=== PATIENT | female | born 1945 | race Caucasian/White ===

== ENCOUNTER 2017-03-15 15:44 | Inpatient (IN) | payer MEDICARE, OTHER ==
[~2017-03-15] VITALS: Ht 152.4 cm; Wt 68.2 kg
[~2017-03-15 15:44] MED LIST: AMLODIPINE PO; ASPI81TA3 PO; CITRACAL PO; MELO-216 PO; MULT-552 PO; [UNRECOGNIZED DRUG - OTHER] PO
[2017-03-15 20:00] VITALS: BP 136/65; PULSE 82; RESP 18
[2017-03-15 20:02] VITALS: Ht 152.4 cm; Wt 68.2 kg
[2017-03-15] MEDS ORDERED: ONDANSETRON 4 MG INJ IV PRN (21:00)
[2017-03-15] MEDS ORDERED: hydrALAzine 20 MG INJ IV PRN (21:00)
[2017-03-15] MEDS ORDERED: INSULIN ASPART [NOVOLOG] 3 ML PEN SC SCH (21:00)
[2017-03-15] MEDS ORDERED: morphine 2 MG INJ IV PRN (21:00)
[2017-03-15] MEDS ORDERED: GLUCOSE GEL 15 GRAM TUBE BUCCAL PRN (21:30)
[2017-03-15] MEDS ORDERED: DEXTROSE 50% 50 ML SYRINGE IV PRN ×2 (21:30)
[2017-03-15] MEDS ORDERED: GLUCOSE GEL 15 GRAM TUBE PO PRN ×2 (21:30)
[2017-03-15] MEDS ORDERED: GLUCAGON 1 MG INJ IM PRN (21:30)
[2017-03-15] MEDS: HEPARIN 5,000 UNIT/0.5 ML VIAL SC SCH (21:52)
[2017-03-15] MEDS ORDERED: SIMV40TA3 PO (22:50)
[2017-03-16 01:56] VITALS: BP 148/70; RESP 20
[2017-03-16] MEDS ORDERED: ACCU-CHEK XX SCH ×2 (02:00)
[2017-03-16 05:28] LABS: BASOPHILS % 0.5 % (0.0-2.0); EOSINOPHILS # 0.1 10^3/ul (0.0-0.5); EOSINOPHILS % 3.5 % (0.0-7.0); HEMATOCRIT 34.2 % (37.0-47.0); HEMOGLOBIN 11.4 g/dl (12.0-16.0); LYMPHOCYTES # 1.5 10^3/ul (0.8-2.9); LYMPHOCYTES % 41.7 % (15.0-51.0); MEAN CORPUSCULAR HEMOGLOBIN 30.8 pg (29.0-33.0); MEAN CORPUSCULAR HGB CONC 33.3 g/dl (32.0-37.0); MEAN CORPUSCULAR VOLUME 92.4 fl (82.0-101.0); MEAN PLATELET VOLUME 9.1 fl (7.4-10.4); MONOCYTE # 0.4 10^3/ul (0.3-0.9); MONOCYTES % 11.7 % (0.0-11.0); NEUTROPHIL # 1.6 10^3/ul (1.6-7.5); NEUTROPHILS % 42.3 % (39.0-77.0); PLATELET COUNT 209 10^3/UL (140-415); RED CELL DISTRIBUTION WIDTH 13.2 % (11.5-14.5); WHITE BLOOD COUNT 3.7 10^3/ul (4.8-10.8)
[2017-03-16 06:47] LABS: ALBUMIN 3.9 g/dl (3.3-4.9); ALBUMIN/GLOBULIN RATIO 1.34; BILIRUBIN,INDIRECT 0.2 mg/dl (0-1.1); BILIRUBIN,TOTAL 0.2 mg/dl (0.2-1.3); CALCIUM 8.8 mg/dl (8.4-10.2); CREATININE 0.83 mg/dl (0.44-1.00); PHOSPHORUS 4.1 mg/dl (2.5-4.9); POTASSIUM 3.9 mmol/L (3.5-5.1); TOTAL PROTEIN 6.8 g/dl (6.1-8.1)
[2017-03-16 07:59] VITALS: BP 137/68; RESP 16
[2017-03-16] MEDS ORDERED: INSULIN GLARGINE [LANtus] 3 ML PEN SC SCH (08:00)
[2017-03-16] MEDS: HEPARIN 5,000 UNIT/0.5 ML VIAL SC SCH ×2 (09:21→20:22)
--- NOTE | 2017-03-16 10:01 | PN ---
Date/Time of Note Date/Time of Note DATE: 03/16/17 TIME: 10:01 Assessment/Plan VTE Prophylaxis VTE Prophylaxis Intervention: ambulation, SCD's Lines/Catheters IV Catheter Type (from Nrs): Saline Lock Assessment/Plan Chief Complaint/Hosp Course 71-year-old female who was transferred from OSH for evaluation of progressive right leg swelling with associated pain 3 day duration. 1. 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 03/15/2017. Bilateral lower extremity venous duplex from [facility]. No evidence of deep vein thrombosis. 03/15/2017. Lumbosacral spine x-ray from [facility]. No fractures. Mild to moderate left convex scoliosis of the lumbar spine, degenerative disc and spondylosis throughout the lumbar spine, including the lower thoracic spine. Grade 1 anterior listhesis of L5 on S1. -Obtain lumbar spine MRI. -For pain management, add celecoxib and baclofen. -PT eval and treatment. 2. Essential hypertension. -Resume amlodipine. 3. Mild hypercalcemia with osteoporosis -We will repeat levels, obtain vitamin D and PTH. 4. Dyslipidemia. -Resume statin. 5. History of lumbar stenosis. 6. Debility secondary to #1. -Follow-up with physical therapy recommendations. Plan: Continue pain control. Follow-up with MRI findings. Patient was seen in collaboration with . Problems: Subjective 24 Hr Interval Summary Free Text/Dictation Patient lying in bed. Continues to report lower back pain with radiation to left lower leg. Right leg without any pain or swelling. Exam/Review of Systems Vital Signs Vitals Vital Signs Date Time Temp Pulse Resp B/P Pulse Ox O2 Delivery O2 Flow Rate FiO2 03/16/17 07:59 98.5 76 16 137/68 98 03/15/17 20:00 Room Air Intake and Output 03/15/17 03/15/17 03/16/17 15:00 23:00 07:00 Intake Total 320 ml Balance 320 ml Exam General: Well developed,adequately built, not in any acute distress . HEENT: Normocephalic, Atraumatic, No laceration or hematoma; Eyes: PEERL, Conjunctiva clear, Anicteric sclera Neck: Supple without any lymphadenopathy, nontender, no JVD, no carotid bruits, trachea midline, no thyromegaly Cardiac: S1, S2 auscultated, regular rhythm and rate, no mumurs or gallop Pulmonary: Normal respiratory effort. Chest clear to auscultation bilaterally, no adventitious breath sounds GI: Abdomen normal to inspection. Soft, non tender, non- distended, no masses, no rebound tenderness or guarding. Bowel sounds active on all four quadrants Genitourinary: Deferred Extremities: No cyanosis, clubbing, or edema. Pulses [2+] bilaterally. Full ROM on all four extremities. No focal weakness appreciated. Neurologic: Alert to person, place, time, and situation. Affect appropriate, intact sensation. Skin: Clean,dry, and intact. No ecchymosis, no rashes, or lesions Results Result Diagram: 03/16/17 0501 03/16/17 0501 Results 24 hrs Laboratory Tests Test 03/15/17 21:50 03/16/17 05:01 Bedside Glucose 95 White Blood Count 3.7 L Red Blood Count 3.70 L Hemoglobin 11.4 L Hematocrit 34.2 L Mean Corpuscular Volume 92.4 Mean Corpuscular Hemoglobin 30.8 Mean Corpuscular Hemoglobin Concent 33.3 Red Cell Distribution Width 13.2 Platelet Count 209 Mean Platelet Volume 9.1 Neutrophils % 42.3 Lymphocytes % 41.7 Monocytes % 11.7 H Eosinophils % 3.5 Basophils % 0.5 Nucleated Red Blood Cells % 0.0 Neutrophils # 1.6 Lymphocytes # 1.5 Monocytes # 0.4 Eosinophils # 0.1 Basophils # 0.0 Nucleated Red Blood Cells # 0.0 Sodium Level 142 Potassium Level 3.9 Chloride Level 109 Carbon Dioxide Level 26 Anion Gap 11 Blood Urea Nitrogen 15 Creatinine 0.83 Glucose Level 90 Calcium Level 8.8 Phosphorus Level 4.1 Magnesium Level 2.0 Total Bilirubin 0.2 Direct Bilirubin 0.00 Indirect Bilirubin 0.2 Aspartate Amino Transf (AST/SGOT) 23 Alanine Aminotransferase (ALT/SGPT) 39 Alkaline Phosphatase 41 L Total Protein 6.8 Albumin 3.9 Globulin 2.90 Albumin/Globulin Ratio 1.34 Lipase 297 Medications Medications Current Medications Heparin Sodium (Porcine) (Heparin (5000 Units/0.5 ml)) 5,000 unit Q12 SC Last administered on 03/16/17t 09:21; Admin Dose 5,000 UNIT; Start 03/15/17 at 21:00 Hydralazine HCl (Apresoline) 10 mg Q4H PRN IV ELEVATED BLOOD PRESSURE; Start at 21:00 Morphine Sulfate (morphine) 2 mg Q4H PRN IV PAIN; Start 03/15/17 at 21:00 Ondansetron HCl (Zofran Inj) 4 mg Q4H PRN IV NAUSEA AND/OR VOMITING; Start at 21:00 Miscellaneous Information 1 ea NOTE XX ; Start 03/15/17 at 21:30 JOSELITO BAZAN NP Mar 16, 2017 10:01
--- NOTE | 2017-03-16 10:27 | HP ---
Date/Time of Note Date/Time of Note DATE: 03/16/17 TIME: 10:18 Assessment/Plan VTE Prophylaxis VTE Prophylaxis Intervention: SCD's Lines/Catheters IV Catheter Type (from Nrsg): Saline Lock Assessment/Plan Assessment/Plan 1. Lower back pain with sciatica -X-ray of the lumbar spine from outside hospital as mentioned in the HPI -Will have a physical therapy evaluation -Pain management - Straight leg raising tests on the left and right lower extremity did not elicit appropriate pain, and as such I will see a negative test -We will consider further imaging with CT scan or MRI as needed 2. Hypertension -Adjust antihypertensives as needed 3. Dyslipidemia -Continue statin HPI/ROS Admit Date/Time Admit Date/Time Mar 15, 2017 at 19:31 Hx of Present Illness This is a 71-year-old female with a history of hypertension who initially presented to the outside hospital complaining of LEFT lower extremity pain, tingling/numbness as well as right lower extremity swelling. Patient is accompanied by her daughter who is at the bedside who also provided history. Patient started having difficulty walking about 3 days ago and then she started experiencing pain in her left buttock/thigh area with radiation to rest of lower extremity. She then started noticing tingling/numbness on the same left lower extremity followed by a right lower extremity swelling. Patient was transferred to [facility] for insurance reason. At the outside hospital lumbosacral spine x-ray showed mild to moderate left convex scoliosis of the lumbar spine, degenerative disc and spondylosis throughout the lumbar spine, including the lower thoracic spine, and grade 1 anterolisthesis of L5 on S1. Bilateral lower extremity Doppler ultrasound negative for DVT. Patient denied any recent trauma. PMH/Family/Social Social History Smoking Status: Never smoker Exam/Review of Systems Vital Signs Vitals Vital Signs Date Time Temp Pulse Resp B/P Pulse Ox O2 Delivery O2 Flow Rate FiO2 03/16/17 07:59 98.5 76 16 137/68 98 03/15/17 20:00 Room Air Intake and Output 03/15/17 03/15/17 03/16/17 15:00 23:00 07:00 Intake Total 320 ml Balance 320 ml Exam Constitutional: alert, oriented, well developed Psych: nl mood/affect, no complaints Eyes: EOMI, PERRL Respiratory: clear to auscultation, normal air movement Cardiovascular: nl pulses, regular rate and rhythm Gastrointestinal: non-tender, soft Extremities: normal pulses Additional Comments Straight leg raising tests on the left and right lower extremity did not elicit appropriate pain, and as such I will see a negative test Labs Result Diagram: 03/16/17 0501 03/16/17 0501 Medications Medications Current Medications Heparin Sodium (Porcine) (Heparin (5000 Units/0.5 ml)) 5,000 unit Q12 SC Last administered on 03/16/17t 09:21; Admin Dose 5,000 UNIT; Start 03/15/17 at 21:00 Hydralazine HCl (Apresoline) 10 mg Q4H PRN IV ELEVATED BLOOD PRESSURE; Start at 21:00 Morphine Sulfate (morphine) 2 mg Q4H PRN IV PAIN; Start 03/15/17 at 21:00 Ondansetron HCl (Zofran Inj) 4 mg Q4H PRN IV NAUSEA AND/OR VOMITING; Start at 21:00 Miscellaneous Information 1 ea NOTE XX ; Start 03/15/17 at 21:30 Multivitamins Therapeutic (Theragran) 1 tab DAILY PO ; Start 03/17/17 at 09:00; Status UNV Miscellaneous Information 950 mg DAILY PO ; Start 03/17/17 at 09:00; Status UNV Miscellaneous Information 40 mg QHS PO ; Start 03/16/17 at 21:00; Status UNV Amlodipine Besylate (Norvasc) 10 mg DAILY PO ; Start 03/17/17 at 09:00; Status UNV Celecoxib (Celebrex) 100 mg BID PO ; Start 03/16/17 at 21:00; Status UNV Baclofen (Lioresal) 10 mg BID PO ; Start 03/16/17 at 21:00; Status UNV GUERA MEEHAN MD Mar 16, 2017 10:27
[2017-03-16 12:29] LABS: THYROID STIMULATING HORMONE 1.23 MIU/L (0.465-4.680)
[2017-03-16] MEDS: BACLOFEN 10 MG TAB PO SCH ×2 (12:44→20:18)
[2017-03-16] MEDS: CELECOXIB 100 MG CAP PO SCH ×2 (13:38→20:18)
[2017-03-16 13:46] VITALS: BP 114/59; RESP 16
[2017-03-16] MEDS ORDERED: CALCIUM CITRATE 950 MG TAB PO SCH (14:00)
[2017-03-16] MEDS: CALCIUM CARBONATE 500 MG CHEW TAB PO SCH (15:19)
[2017-03-16 19:43] VITALS: BP 133/69; RESP 20
[2017-03-16] MEDS ORDERED: ATORVASTATIN 20 MG TAB PO SCH (21:00)
[2017-03-16] MEDS ORDERED: BACLOFEN 10 MG TAB PO SCH (21:00)
[2017-03-16] MEDS ORDERED: CELECOXIB 100 MG CAP PO SCH (21:00)
--- NOTE | 2017-03-16 21:16 | RADRPT ---
PROCEDURE: MRI lumbar spine CLINICAL INDICATION: Low back pain with bilateral lower extremity right greater than left symptoms TECHNIQUE: An MRI of the lumbar spine was performed on a high resolution high definition 3.0 [place] , MRI scanner utilizing the following sequences: Sagittal T1 weighted, sagittal and dual echo axial T2 weighted, and sagittal T2 weighted with fat saturation. COMPARISON: No relevant priors FINDINGS: There is normal lumbar lordosis present with a levoscoliosis with apex at the L3-4 level . Grade 1 s pondylolisthesis of L5 on S1 is present with bilateral L5 spondylolysis. In addition, 3 mm degenerat cedric retrolisthesis of L1 on L2 is present. Modic type 2 degenerative endplate changes are present o f L1-2. The discs demonstrate multilevel disc desiccation at the L1-2 L3-4 and L5-S1 levels with sev ere disc space height loss at L1-2 and L5-S1 and moderate at L3-4 and L4-5. The conus medullaris ter minates normally at the T12-L1 level. The bilateral paravertebral soft tissues are normal with mild fatty atrophy of the bilateral paravertebral musculature. The specific axial levels are as follows: T12 - L1: A mild 1-2 mm annular bulge is present. The central canal, bilateral subarticular recesse s and neural foramen are patent. Mild bilateral facet arthropathy and facet effusions are present. L1 - L2: Modic type 2 degenerative endplate changes and severe disc space height loss and disc nieves ccation is present. A 5 mm broad-based bulge and osteophyte is noted. Mild bilateral facet arthropat hy and facet effusions are present. The central canal is patent with mild bilateral subarticular rec ess stenosis. Moderate bilateral neural foraminal stenosis is present. Recommend correlation with a bilateral L1 radiculopathy. L2 - L3: The intervertebral disc is normal height and signal. A mild 2 mm broad-based bulge is prese nt. Mild bilateral facet arthropathy and facet effusions are present with mild ligamentum flavum hyp ertrophy. AP canal dimension is 8 mm. This results in a mild central canal stenosis, bilateral subar ticular recess stenosis and mild bilateral neural foraminal stenosis. L3 - L4: Disc desiccation is present with moderate disc space height loss noted. Mild 2 mm broad-ba sed bulge is present. AP canal dimension is 9 mm. Mild bilateral facet arthropathy ligamentum hypert rophy and facet effusions are present. Mild central canal stenosis, bilateral subarticular recess stenosis and mild bilateral neural foraminal stenosis is present. L4 - L5: Moderate disc space height loss is present with mild vacuum phenomenon present. The presen ce of a left subarticular recess 5 mm extrusion is present superimposed on a eccentric moderate broa d based bulge to the left. Moderate bilateral facet arthropathy facet effusions and ligamentum hyper trophy is present. In addition a superimposed ligamentum flavum or synovial cyst is suggested measur ing approximately 4 mm in the left subarticular recess. Large bilateral left greater than right fac et arthropathy and facet effusions are present. AP canal dimension is 5.9 mm. This results in a jase re central, left subarticular recess stenosis, mild right subarticular recess stenosis and severe le ft and moderate to severe right neural foraminal stenosis. Recommend correlation with a left L5 radi culopathy secondary to the left subarticular recess stenosis and a left greater than right L4 radicu lopathy. L5 - S1: Grade 1 spondylolisthesis of L5 and S1 with bilateral L5 spondylolysis is again noted. Sev ere disc space height loss disc dessication is present in a moderate to large broad-based bulge. The central canal measures approximately 7 mm. This results in a moderate to severe central canal steno sis, subarticular recess stenosis and severe bilateral neural foraminal stenosis. IMPRESSION: 1. Grade 1 spondylolisthesis of L5 and S1 with bilateral L5 spondylolysis and levoscoliosis as note d. 2. 3 mm degenerative retrolisthesis of L1 and L2. 3. Multilevel broad-based disc osteophyte complexes at the T12-L1 to L5-S1 levels with severe centr al canal stenosis at L4-5, moderate stenosis at L5-S1 and mild at L2-3 and L3-4 levels. 4. Left subarticular recess 5 mm disc extrusion at L4-5 with severe left subarticular recess stenos is. Recommend correlation with a left L5 radiculopathy . 5. Probable 4 mm left ligamentum flavum or synovial cyst at the left L-4 L5 subarticular recess con tributing to the severe stenosis. 6. Multilevel neural foraminal stenosis at the L1-2 through L5-S1 levels and correlate with respect cedric radiculopathy as noted above para 7. Multilevel facet and ligamentum flavum osteoarthropathy as noted. RPTAT: HDC .Joy Morgan MD, MD Date Time Electronically viewed and signed by .Joy Morgan MD, MD on 03/16/2017 21:15 .C/
[2017-03-17 02:32] VITALS: BP 142/67; RESP 20
[2017-03-17 05:57] LABS: CALCIUM 9.2 mg/dl (8.4-10.2); CREATININE 0.85 mg/dl (0.44-1.00); POTASSIUM 4.2 mmol/L (3.5-5.1)
[2017-03-17 07:23] VITALS: BP 129/61; RESP 16
[2017-03-17] MEDS: BACLOFEN 10 MG TAB PO SCH (08:41)
[2017-03-17] MEDS: CALCIUM CARBONATE 500 MG CHEW TAB PO SCH (08:41)
[2017-03-17] MEDS: CELECOXIB 100 MG CAP PO SCH (08:42)
[2017-03-17] MEDS ORDERED: MULTIVITAMINS THERAPEUTIC TAB PO SCH (09:00)
[2017-03-17] MEDS ORDERED: AMLODIPINE 10 MG TAB PO SCH (09:00)
[2017-03-17] MEDS ORDERED: ASPIRIN 81 MG TAB PO SCH (09:00)
[2017-03-17] MEDS ORDERED: CALCIUM CITRATE 950 MG PO SCH (09:00)
[2017-03-17] MEDS: HEPARIN 5,000 UNIT/0.5 ML VIAL SC SCH (09:18)
--- NOTE | 2017-03-17 11:25 | PDOCDIS ---
Discharge Instructions CONDITION Patient Condition: Stable HOME CARE INSTRUCTIONS: Diet Instructions: Regular ACTIVITY: Activity Restrictions: Special Program (Physical therapy as outpatient) Special Exercises FOLLOW UP/APPOINTMENTS Follow-up Plan 1.Follow up with primary care physician in 1 week-recommend repeat MRI lumbar spine in 3-4 months and neurosurgery outpatient follow-up if patient develops numbness, tingling, loss of function. Patient also would benefit from outpatient physical therapy. If you don't have one please let someone know, we can give you resources that may help you pick one. You may also call your insurance company to assign one to you. Review your medication list with your nurse before leaving and if you need new prescriptions please let your nurse know. I may have made changes to your home medications or given you new prescriptions, please let your primary doctor know as well. Stay compliant with your medications and report any side effects to your PCP or pharmacist. Return to the ER if you have any concerns and cannot reach your doctors or call your insurance company, they usually have a nurse that can help you. 2. Call 911 or go to the nearest emergency room if experiencing loss of consciousness, dizziness, chest pain, shortness of breath, vomiting/abdominal pain, speech difficulties, motor weakness or any unusual symptoms. JOSELITO BAZAN NP Mar 17, 2017 11:25
[2017-03-17] MEDS ORDERED: ATOR20TA65 PO (11:29)
[2017-03-17] MEDS ORDERED: AMLO-147 PO (11:29)
[2017-03-17] MEDS ORDERED: CHOL100062 PO (11:29)
[2017-03-17] MEDS ORDERED: BACL10TA PO (11:29)
[2017-03-17] MEDS ORDERED: CELE100C PO (11:29)
--- NOTE | 2017-03-17 11:53 | DS ---
Date/Time of Note Date/Time of Note DATE: 03/17/17 TIME: 11:49 Discharge Summary Admission/Discharge Info Admit Date/Time Mar 15, 2017 at 19:31 Discharge Date/Time Discharge Diagnosis 1. Degenerative joint disease of lumbar spine with lumbar stenosis and radiculopathy. 2. Essential hypertension 3. Dyslipidemia. 4. Chronic back pain 5. Osteoporosis 6. Debility secondary to #1. Patient Condition: Stable Procedures 2016. Lumbar MRI. IMPRESSION: 1. Grade 1 spondylolisthesis of L5 and S1 with bilateral L5 spondylolysis and levoscoliosis as noted. 2. 3 mm degenerative retrolisthesis of L1 and L2. 3. Multilevel broad-based disc osteophyte complexes at the T12-L1 to L5-S1 levels with severe central canal stenosis at L4-5, moderate stenosis at L5-S1 and mild at L2-3 and L3-4 levels. 4. Left subarticular recess 5 mm disc extrusion at L4-5 with severe left subarticular recess stenosis. Recommend correlation with a left L5 radiculopathy . 5. Probable 4 mm left ligamentum flavum or synovial cyst at the left L-4 L5 subarticular recess contributing to the severe stenosis. 6. Multilevel neural foraminal stenosis at the L1-2 through L5-S1 levels and correlate with respective radiculopathy as noted above para 7. Multilevel facet and ligamentum flavum osteoarthropathy as noted. Hospital Course This is a 71-year-old female with a past medical history of degenerative disc disease of lumbar spine, lumbar stenosis, osteoporosis, chronic back pain, hypertension, dyslipidemia, who initially presented to outside hospital for evaluation of worsening lower back pain with difficulty walking for 3 days. Patient also had radiation of pain to left lower extremities. She did not have any heaviness, numbness, tingling or other neurological symptoms. At the outside hospital lumbosacral spine x-ray showed mild to moderate left convex scoliosis of the lumbar spine, degenerative disc and spondylosis throughout the lumbar spine, including the lower thoracic spine, and grade 1 anterolisthesis of L5 on S1. Bilateral lower extremity Doppler ultrasound negative for DVT. Patient was transferred to [facility] for insurance purposes. Patient was started on Celebrex and baclofen. She was continued on her home medications. An MRI of lumbar spine was done and revealed severe central canal stenosis at L4-5, moderate stenosis at L5-S1 and mild at L2-3 and L3-4 levels. Patient was evaluated by physical therapy. Her pain was significantly improved with initiation of Celebrex and baclofen. She was able to tolerate physical therapy. At this time, there was no need for neurosurgical inpatient consult as she did not have any neurological compromise. At this time, her left leg pain is completely resolved and patient is feeling significant improvement in lower back pain. Physical therapy recommended continuation of home health PT with front wheeled walker. Case management was consulted for this. Patient was also noted with vitamin D deficiency for which supplementation was recommended. Her lipid panel remained within acceptable level and statin prescription was titrated based on requirement. I also spoke with patient's daughter and patient with Thai translation and at this time, they wanted to proceed with pain medications to keep patient comfortable and will follow up with her primary care physician regarding further outpatient neurosurgical evaluation if indicated if her pain gets worse in future with neurological symptoms. Disposition: Patient will be discharged home with outpatient primary care follow -up. She would also require home health physical therapy 3 times a week with a revision of front-wheeled walker. Prescriptions for medications were given. I also discussed with patient's daughter that her condition may get worse as she advanced her age and would eventually benefits from a snf facility in long run once her debility will start progressed. Patient and family verbalized discharge instructions. Approximately 1600 spent in coordinating the discharge on this patient. Patient was seen in collaboration with . Home Meds Active Scripts Cholecalciferol* (Vitamin D3*) 1,000 Unit Tablet, 2000 UNIT PO DAILY, #30 TAB Prov:BAZAN,JOSELITO V. FLOAT TENDER 03/17/17 Celecoxib* (Celebrex*) 100 Mg Capsule, 100 MG PO BID, #60 CAP Prov:BAZAN,JOSELITO V. FLOAT TENDER 03/17/17 Amlodipine Besylate* (Amlodipine Besylate*) 10 Mg Tablet, 10 MG PO DAILY, #30 TAB Prov:BAZAN,JOSELITO V. FLOAT TENDER 03/17/17 Atorvastatin Calcium (Atorvastatin Calcium) 20 Mg Tablet, 10 MG PO DAILY@21, # 30 TAB Prov:BAZANJOSELITO V. FLOAT TENDER 03/17/17 Baclofen* (Baclofen*) 10 Mg Tablet, 10 MG PO BID, #60 TAB Prov:BAZANJOSELITO V. FLOAT TENDER 03/17/17 Reported Medications Calcium Citrate* (Citracal*) 950 Mg Tab, 950 MG PO DAILY, TAB 06/26/14 Meloxicam* (Meloxicam*) 7.5 Mg Tablet, 7.5 MG PO DAILY, TAB 06/26/14 Multivitamins* (Once Daily*) 1 Tab Tablet, 1 TAB PO DAILY, TAB 06/26/14 Discontinued Reported Medications Simvastatin (Simvastatin) 40 Mg Tablet, 40 MG PO QHS, #30 TAB 03/15/17 [[place]] No Conflict Check, PO Q4 Y UNKNOWN DOSE 10/23/12 Aspirin (Aspirin) 81 Mg Chew, 81 MG PO DAILY 10/23/12 [Amlodipine] No Conflict Check, PO DAILY UNKNOWN DOSE 10/23/12 Follow-up Plan 1.Follow up with primary care physician in 1 week-recommend repeat MRI lumbar spine in 3-4 months and neurosurgery outpatient follow-up if patient develops numbness, tingling, loss of function. Patient also would benefit from outpatient physical therapy. If you don't have one please let someone know, we can give you resources that may help you pick one. You may also call your insurance company to assign one to you. Review your medication list with your nurse before leaving and if you need new prescriptions please let your nurse know. I may have made changes to your home medications or given you new prescriptions, please let your primary doctor know as well. Stay compliant with your medications and report any side effects to your PCP or pharmacist. Return to the ER if you have any concerns and cannot reach your doctors or call your insurance company, they usually have a nurse that can help you. 2. Call 911 or go to the nearest emergency room if experiencing loss of consciousness, dizziness, chest pain, shortness of breath, vomiting/abdominal pain, speech difficulties, motor weakness or any unusual symptoms. Primary Care Provider Kareem Wallace Pending Labs Laboratory Tests Test 03/17/17 05:09 Sodium Level 143mmol/L (135-144) Potassium Level 4.2mmol/L (3.5-5.1) Chloride Level 110mmol/L (97-110) Carbon Dioxide Level 25mmol/L (21-31) Anion Gap 12 (8-16) Blood Urea Nitrogen 14mg/dl (7-20) Creatinine 0.85mg/dl (0.44-1.00) Glucose Level 98mg/dl (70-220) Calcium Level 9.2mg/dl (8.4-10.2) JOSELITO BAZAN NP Mar 17, 2017 11:53
[2017-03-17 14:06] VITALS: BP 134/61; RESP 16
[2017-03-18 19:02] LABS: PTH CALCIUM 9.3 mg/dL (8.6-10.4)
== END 2017-03-17 16:45 | disposition home health service (06) | DRG 552 ==
LOC: MS2 19:31
PROVIDERS: ADMIT Internal Medicine; ATTEND Internal Medicine
DX: M54.16 Radiculopathy, lumbar region (principal); I10 Essential (primary) hypertension; M19.91 Primary osteoarthritis, unspecified site; M48.06 Spinal stenosis, lumbar region; E78.5 Hyperlipidemia, unspecified; M54.9 Dorsalgia, unspecified; G89.29 Other chronic pain; M81.0 Age-related osteoporosis without current pathological fracture; R53.81 Other malaise; M43.17 Spondylolisthesis, lumbosacral region
CPT/HCPCS: 72148; 80048; 80053; 80061; 82306; 82652; 82962; 83036; 83690; 83735; 83970; 84100; 84443; 85025; 97116; 97163; 97530; J1644; J1815